=== PATIENT | female | born 1985 | race Hispanic/Latino ===

== ENCOUNTER 2019-04-26 08:02 | Emergency (ER) | payer OTHER, SELFPAY ==
[2019-04-26 08:21] VITALS: BP 104/61; PULSE 94; RESP 16; TEMP 36.3; O2SAT 98
--- NOTE | 2019-04-26 08:39 | ED.GENADULT ---
HPI - General Adult General Chief complaint: Upper Respiratory Infection Stated complaint: congestion/cough Time Seen by Provider: 04/26/19 08:45 Source: patient and RN notes reviewed Mode of arrival: ambulatory Limitations: no limitations History of Present Illness HPI narrative: This is a 34 years old female presents to the office for reevaluation of sinus congestion. States, she has these symptoms off and on for the last few months. Symptoms got better with prescribed medications; however her symptoms return a few days ago. Symptoms include sinus congestion, stuffy nose with drainage and little cough. She has tried nasal spray, Mucinex and sinus medication with no relief. She does not smoke. Denies sick contact. I reviewed patient's previous visit. HPI - Ear Problem General Chief complaint: Ear Stated complaint: Ear Pain Time Seen by Provider: 03/22/19 18:05 Source: patient and RN notes reviewed Mode of arrival: ambulatory Limitations: no limitations History of Present Illness HPI Narrative: 33-year-old female presents with concern for right ear pain that started yesterday. She reports nasal congestion, nasal pressure for 1 week. Reports a cough that started 3 weeks ago. Reports symptoms continue to worsen. Reports general malaise, fatigue. Reports [id number] medications with no relief Related Data Allergies Allergy/AdvReac Type Severity Reaction Status Date / Time No Known Allergies Allergy Unknown Verified 04/26/19 08:30 Review of Systems Review of Systems: Narrative: CONSTITUTIONAL: Denies fever, chills EYES: Denies visual changes, redness, discharge. ENT: Denies ears pain CARDIOVASCULAR: Denies chest pain RESPIRATORY: Denies dyspnea, wheezing GASTROINTESTINAL: Denies abdominal pain, nausea, vomiting, diarrhea. GENITOURINARY: Denies urinary symptoms or discharge SKIN: Denies rash MUSCULOSKELETAL: Denies acute back pain NEUROLOGIC: Denies lightheaded PMFSH Family History Family History Grandparent Diabetes mellitus Social History Social History Smoking status: Never smoker Alcohol intake: never Gender identity (if verbalized by the patient): Female Comments At time of signature, I agree with nursing past medical, surgical, social and family history. There is no relevant family history pertinent to the presenting complaint. Exam Narrative: Exam Narrative: GENERAL: This is a well-nourished, well-developed patient, in no apparent distress. EYES: Sclera clear/white. Vision is grossly intact. EARS: External ears normal, auditory canals clear and without drainage, TMs normal without perforation. Hearing grossly intact. NOSE: External nose normal with no obvious nasal discharge, nares edematous and erythema. THROAT: Mucous membranes moist, posterior pharynx erythema with drainage NECK: Neck supple, non-tender without lymphadenopathy, masses or thyromegaly. CARDIOVASCULAR: Regular rate and rhythm without murmurs, gallops, or rubs. RESPIRATORY: Clear to auscultation. Breath sounds equal bilaterally. No wheezes, rales, or rhonchi. GASTROINTESTINAL: Abdomen soft, non-tender, nondistended. Bowel sounds are active. No hepato-splenomegaly, or palpable masses. No guarding. SKIN: warm, intact with no suspicious lesions or rash, good texture and turgor. NEURO: awake, alert, and oriented to person, place and time. There were no obvious focal neurologic abnormalities. Steady gait Josué Coma Scale Eye Opening: Spontaneous 4 Hamilton Coma Scale Motor: Obeys Commands 6 Josué Coma Scale Verbal: Oriented 5 Course Vital Signs Vital signs: Vital Signs Temperature 97.4 F L 04/26/19 08:21 Pulse Rate 94 04/26/19 08:21 Respiratory Rate 16 04/26/19 08:21 Blood Pressure 104/61 04/26/19 08:21 Pulse Oximetry 98 04/26/19 08:21 Temperature 97.4 F L 04/26/19 08:21 Pulse Rate 94 0
== END 2019-04-26 09:03 | disposition home or self-care (01) ==
PROVIDERS: Emergency Provider Nurse Practitioner
DX: J01.11 Acute recurrent frontal sinusitis (principal)
CPT/HCPCS: 99213; G0463

== ENCOUNTER 2020-04-02 17:45 | Emergency (ER) | payer OTHER, SELFPAY ==
[2020-04-02 18:19] VITALS: BP 116/70; PULSE 73; RESP 18; TEMP 36.3; O2SAT 100
--- NOTE | 2020-04-02 18:31 | ED.GENADULT ---
HPI - General Adult General Chief complaint: Ear Stated complaint: Ear Pain Time Seen by Provider: 04/02/20 18:31 Source: patient Mode of arrival: ambulatory Limitations: no limitations History of Present Illness HPI narrative: 35-year-old female patient presents to the [facility] with complaints of bilateral ear pain more so to the left. Patient states is been going on for about 3 days now. Patient states they also feel very full and states that when she moves her head at times she does get dizzy. Patient states she has tried Sudafed and [id number] Flonase for her symptoms but feels like they are not improving. Patient states she did have Covid back in January. Patient denies any fevers, body aches or chills. Denies any discharge from the ears. Related Data Allergies Allergy/AdvReac Type Severity Reaction Status Date / Time No Known Allergies Allergy Unknown Verified 04/02/20 18:12 Review of Systems Review of Systems: Narrative: CONSTITUTIONAL: Denies fever, chills, or sweats. EYES: Denies visual changes, redness, or discharge. ENT: Denies rhinorrhea, congestion, sore throat, positive bilateral otalgia. CARDIOVASCULAR: Denies chest pain, palpitations, or edema. RESPIRATORY: Denies cough or dyspnea. GASTROINTESTINAL: Denies abdominal pain, nausea, vomiting, or diarrhea. GENITOURINARY: Denies dysuria or hematuria. SKIN: Denies rash or itching. MUSCULOSKELETAL: Denies back pain, joint pain, or myalgia. NEUROLOGIC: Denies headache, numbness, or weakness. PSYCHIATRIC: Denies anxiety or depression. [facility] Past Medical History Medical History (Updated 04/02/20 @ 18:38 by MARIAM Duong) Asthma Pilonidal cyst Polyhydramnios Family History Family History Grandparent Diabetes mellitus Social History Social History Smoking status: Never smoker Alcohol intake: never Gender identity (if verbalized by the patient): Female Comments At the time of my signature I agree with nursing past medical history, surgical, social, and family history. There is no relevant family history pertinent to the presenting complaint. Exam Narrative: Exam Narrative: GENERAL: Well-appearing, well-nourished, and in no acute distress. HEAD: Normocephalic, atraumatic. EYES: PERRLA and EOMI. ENT: Nares with erythema and edema noted bilaterally, no rhinorrhea or epistaxis. Mucous membranes moist. Posterior pharynx with no erythema, tonsil enlargement, exudates or lesions present. Patient does have erythema to bilateral TMs NECK: Supple. No lymphadenopathy CHEST: Clear to auscultation. No respiratory distress. HEART: Regular rate and rhythm. No murmur heard. Normal peripheral pulses. ABDOMEN: Soft, nontender, nondistended, normal active bowel sounds. EXTREMITIES: Normal range of motion. No edema. SKIN: Warm, dry, no rash. NEURO: No focal deficits. Alert and oriented x3. Course Vital Signs Vital signs: Vital Signs Temperature 36.3 C L 04/02/20 18:19 Pulse Rate 73 04/02/20 18:19 Respiratory Rate 18 04/02/20 18:19 Blood Pressure 116/70 04/02/20 18:19 Pulse Oximetry 100 04/02/20 18:19 Temperature 36.3 C L 04/02/20 18:19 Pulse Rate 73 04/02/20 18:19 Respiratory Rate 18 04/02/20 18:19 Blood Pressure 116/70 04/02/20 18:19 Pulse Oximetry 100 04/02/20 18:19 Vital signs reviewed Medical Decision Making Differential Diagnosis Differential Diagnosis: Differential diagnosis: Otitis media, otitis externa, perforated TM, infection of the outer ear, foreign body or cerumen impaction, ruptured TM, acute mastoiditis, ligament otitis externa, dehydration, pneumonia, sepsis, dental or intraoral infection, TMJ dysfunction Discussed with patient it does appear that she has a bilateral ear infection and we will discharge her home with oral antibiotics. Discussed with her that she can continue taking the
== END 2020-04-02 18:48 | disposition home or self-care (01) ==
PROVIDERS: Emergency Provider Nurse Practitioner Family
DX: H66.93 Otitis media, unspecified, bilateral (principal); J45.909 Unspecified asthma, uncomplicated
CPT/HCPCS: 99213; G0463

== ENCOUNTER 2020-11-25 18:32 | Emergency (ER) | payer OTHER, SELFPAY ==
--- NOTE | 2020-11-25 18:44 | ED.EAR ---
HPI - Ear Problem General Chief complaint: Ear Stated complaint: ear infection Time Seen by Provider: 11/25/20 18:44 Source: patient and RN notes reviewed Mode of arrival: ambulatory Limitations: no limitations History of Present Illness HPI Narrative: 35-year-old female presents to the [facility] with complaints of left ear pain for the last few days. No treatment prior to arrival. No sinus issues. No headache. No vertigo. No nausea vomiting or diarrhea. No chest pain or abdominal pain MD Complaint: ear pain Related Data Home Medications Medication Instructions Recorded Confirmed cholecalciferol (vitamin D3) 11/25/20 Allergies Allergy/AdvReac Type Severity Reaction Status Date / Time No Known Allergies Allergy Unknown Verified 04/02/20 18:12 Review of Systems Review of Systems: All systems reviewed & are unremarkable except as noted in HPI and below Constitutional: Constitutional: Reports no additional constitutional complaints, Denies chills and Denies fever(s) Eyes: Eyes: Reports no additional eye complaints and Denies change in vision ENT: Reports as per HPI Comments: Left ear pain Cardiovascular: Cardiovascular: Reports no additional cardiovascular complaints and Denies chest pain Respiratory: Respiratory: Reports no additional respiratory complaints, Denies cough and Denies dyspnea Gastrointestinal: Gastrointestinal: Reports no additional gastrointestinal complaints, Denies abdominal pain, Denies nausea and Denies vomiting Genitourinary: Genitourinary: Reports no additional female genitourinary complaints Musculoskeletal: Musculoskeletal: Reports no additional musculoskeletal complaints Integumentary/Breasts: Skin/Breast: Reports system reviewed and no additional complaints, except as docu Neurologic: Reports system reviewed and no additional complaints, except as documented Psychiatric: Psychiatric: Reports no additional psychiatric complaints Allergic/Immunologic: Allergic/Immunologic: Reports no additional allergic/immunologic complaints [facility] Past Medical History Medical History Asthma Pilonidal cyst Polyhydramnios Family History Family History Grandparent Diabetes mellitus Social History Social History Smoking status: Never smoker Alcohol intake: never Gender identity (if verbalized by the patient): Female Comments At the time of my signature, I reviewed and agree with the nursing past medical, surgical, social, and family history. There is no relevant family history pertinent to the patient complaint. Exam Const: General: healthy appearing, no acute distress and alert Nutritional Appearance: well nourished Orientation/consciousness: patient oriented x3 Limitations: no limitations HENMT: Head: normal to inspection Ears: external ears normal, EAC's normal and TM abnormal with fluid behind the TM bilateral Eyes: Conjunctivae: conjunctivae normal Pupils: Equal, round and reactive pupils present Neck: Neck: normal visual inspection, no lymphadenopathy and no meningeal signs Chest: Chest palpation & inspection: normal inspection of the chest Resp: Effort & Inspection: normal respiratory effort Auscultation: clear to auscultation bilaterally Cardio: Rate: regular rate Rhythm: regular rhythm : General: Yes no CVA tenderness Back/Spine/Pelvis: Back: no CVA tenderness Skin: General skin exam: normal color Rashes: no rashes Wounds: no wounds Neuro: General: patient oriented x3, moves all extremities, no meningeal signs and no focal motor deficits Speech: normal speech Gait exam (Neuro): Normal gait present Extrem: General: normal to inspection Psych: Appearance: grossly normal and well kempt Mental Status: mental status grossly normal Affect: normal affect Attitude: cooperative Thought content: Yes Normal
[2020-11-25 18:45] VITALS: BP 98/73; PULSE 75; RESP 16; TEMP 36.4; O2SAT 99
== END 2020-11-25 19:07 | disposition home or self-care (01) ==
PROVIDERS: Emergency Provider Nurse Practitioner
DX: H65.03 Acute serous otitis media, bilateral (principal); J45.909 Unspecified asthma, uncomplicated
CPT/HCPCS: 99211; G0463